=== PATIENT | male | born 1970 | race African-American/Black ===

== ENCOUNTER 2020-08-06 09:37 | Inpatient (IN) | payer BC ==
[~2020-08-06] VITALS: Ht 195.6 cm; Wt 117.9 kg
[2020-08-06] MEDS ORDERED: LISI-607 PO (09:53)
[2020-08-06] MEDS ORDERED: METF-442 PO (09:53)
[2020-08-06] MEDS ORDERED: ASPIRIN 325 MG TABLET PO ONE (10:00)
[2020-08-06 10:16] LABS: BASOPHILS % (AUTO) 0.5 % (0.0-2.0); EOSINOPHILS # (AUTO) 0.1 K/uL (0.0-0.7); EOSINOPHILS % (AUTO) 2.1 % (0.0-7.0); HEMATOCRIT 38.1 % (36.7-47.1); HEMOGLOBIN 12.9 g/dL (12.5-16.3); LYMPHOCYTES # (AUTO) 1.9 K/uL (20.0-40.0); LYMPHOCYTES % (AUTO) 32.4 % (20.5-51.5); MEAN CORPUSCULAR HEMOGLOBIN 30.3 uug (23.8-33.4); MEAN CORPUSCULAR HGB CONC 34 g/dL (32.5-36.3); MEAN CORPUSCULAR VOLUME 89.7 fL (73.0-96.2); MONOCYTES # (AUTO) 0.5 K/uL (2.0-10.0); MONOCYTES % (AUTO) 8.6 % (0.0-11.0); NEUTROPHILS # (AUTO) 3.4 K/uL (1.8-8.9); NEUTROPHILS % (AUTO) 56.4 % (38.5-71.5); PLATELET COUNT (AUTO) 268 K/uL (152-348); RED BLOOD CELL COUNT(AUTO) 4.25 MIL/uL (4.06-5.63); WHITE BLOOD COUNT (AUTO) 5.9 K/uL (3.6-10.2)
--- NOTE | 2020-08-06 10:16 | NUR ---
PT IS IN ROOM #1B. DR KOHLI EVALUATED THE PT. PT DENIES C/P AT THIS TIME. NO S/S OF ACUTE DISTRESS, CONTINUE TO MONITOR THE PT.
[2020-08-06] MEDS ORDERED: ASPIRIN 325 MG TABLET ONE (10:23)
[2020-08-06 10:25] LABS: CREATININE 1.2 mg/dL (0.6-1.3); POTASSIUM 3.9 mmol/L (3.5-5.1)
[2020-08-06 10:31] LABS: BILIRUBIN,DIRECT 0.1 mg/dL (0.0-0.2); BILIRUBIN,TOTAL 0.3 mg/dL (0.2-1.0); TOTAL PROTEIN, SERUM 7.4 g/dL (6.4-8.2)
[2020-08-06] MEDS ORDERED: ACETAMINOPHEN 325 MG TABLET PO PRN (13:15)
[2020-08-06] MEDS ORDERED: HYDROCODONE/APAP 5-325MG TABLET PO PRN (13:15)
[2020-08-06] MEDS ORDERED: Z GUARD REMEDY PASTE 57 GM TUBE TOP PRN (13:15)
[2020-08-06] MEDS ORDERED: ONDANSETRON 4 MG/2 ML VIAL IV PRN (13:15)
[2020-08-06] MEDS ORDERED: MAGNESIUM HYDROXIDE 30 ML LIQUID UDC PO PRN (13:15)
--- NOTE | 2020-08-06 16:01 | NUR ---
REPORT WAS GIVEN TO REWORKER. PT WAS TRANSFERED TO ROOM #218.
--- NOTE | 2020-08-06 17:10 | NUR ---
50 year old male received from er via gurney to room 218 for chest pain pt is axox4 brp call light with in reach,orient the pt to room and surroundings. made aware for the admission
[2020-08-06 17:18] VITALS: BP 139/92
[2020-08-06] MEDS: METFORMIN HCL 500 MG TABLET PO SCH (17:27)
[2020-08-06 20:12] VITALS: BP 142/90
[2020-08-07 00:06] VITALS: BP 113/79
[2020-08-07 04:18] VITALS: BP 140/86
[2020-08-07 07:52] LABS: BASOPHILS % (AUTO) 0.3 % (0.0-2.0); EOSINOPHILS # (AUTO) 0.1 K/uL (0.0-0.7); EOSINOPHILS % (AUTO) 1.7 % (0.0-7.0); HEMOGLOBIN 12.9 g/dL (12.5-16.3); LYMPHOCYTES # (AUTO) 2.1 K/uL (20.0-40.0); LYMPHOCYTES % (AUTO) 31.3 % (20.5-51.5); MEAN CORPUSCULAR HEMOGLOBIN 30.5 uug (23.8-33.4); MEAN CORPUSCULAR HGB CONC 34 g/dL (32.5-36.3); MEAN CORPUSCULAR VOLUME 89.7 fL (73.0-96.2); MONOCYTES # (AUTO) 0.5 K/uL (2.0-10.0); NEUTROPHILS # (AUTO) 3.9 K/uL (1.8-8.9); NEUTROPHILS % (AUTO) 58.7 % (38.5-71.5); PLATELET COUNT (AUTO) 293 K/uL (152-348); RED BLOOD CELL COUNT(AUTO) 4.24 MIL/uL (4.06-5.63); WHITE BLOOD COUNT (AUTO) 6.6 K/uL (3.6-10.2)
--- NOTE | 2020-08-07 08:00 | NUR ---
Awake, alert, oriented x 4, on moderate high back rest. Denies chest pain.
[2020-08-07 08:28] LABS: CREATININE 1.1 mg/dL (0.6-1.3); MAGNESIUM 2.1 mg/dL (1.8-2.4); PHOSPHOROUS 3.8 mg/dL (2.5-4.9); POTASSIUM 4.2 mmol/L (3.5-5.1)
[2020-08-07] MEDS ORDERED: LISINOPRIL 5 MG TABLET PO SCH (09:00)
[2020-08-07] MEDS: METFORMIN HCL 500 MG TABLET PO SCH (09:54)
[2020-08-07] MEDS ORDERED: ASPIRIN 81 MG TAB.CHEW PO SCH (10:45)
[2020-08-07] MEDS ORDERED: ATORVASTATIN 20 MG TABLET PO SCH (10:48)
[2020-08-07] MEDS ORDERED: ASPI81TA31 PO (10:55)
[2020-08-07] MEDS ORDERED: ATOR20TA PO (10:55)
[2020-08-07 11:56] VITALS: BP 137/86
[2020-08-07 12:01] VITALS: BP 137/86
--- NOTE | 2020-08-07 13:15 | NUR ---
With discharge order, coordinated with Eliazar, personnel of [facility]. Saline lock removed. Tele removed. Prescription and DC instruction given to patient, verbalized understanding. Went home per ambulatory in fair condition, not in distress, afebrile
== END 2020-08-07 13:15 | DRG 918 ==
LOC: ER 09:37 → TELE 16:07
PROVIDERS: ADMIT Family Medicine; ATTEND Family Medicine
DX: T40.5X1A Poisoning by cocaine, accidental (unintentional), initial encounter (principal); R07.89 Other chest pain; E66.9 Obesity, unspecified; Z68.30 Body mass index [BMI] 30.0-30.9, adult; Z71.3 Dietary counseling and surveillance; E11.42 Type 2 diabetes mellitus with diabetic polyneuropathy; I10 Essential (primary) hypertension; E11.65 Type 2 diabetes mellitus with hyperglycemia; Z71.6 Tobacco abuse counseling; F14.188 Cocaine abuse with other cocaine-induced disorder; F17.210 Nicotine dependence, cigarettes, uncomplicated; Y92.89 Other specified places as the place of occurrence of the external cause; Z79.84 Long term (current) use of oral hypoglycemic drugs; Z20.822 Contact with and (suspected) exposure to COVID-19
CPT/HCPCS: 36415; 70030-TC; 71045; 83735; 84100; 85025; 93005; 93307; A4663; G0378